=== PATIENT | female | born 2000 | race Caucasian/White ===

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

== ENCOUNTER 2018-03-18 04:28 | Emergency (ER) | payer BC, MEDICAID ==
--- NOTE | 2018-03-18 04:33 | ERPHSYRPT ---
- History of Present Illness Time Seen by Provider: 03/18/18 04:33 Source: patient, family Physician History: 17 y/o iddm white female with an implanted left lower quadrant abd wall insulin pump presents with mild left lower abd discomfort and mild diarrhea. pts blood glucose has been poorly controlled this past week. this am she checked for ketones in her urine and home kit said urine positive for ketones. pt denies vomiting. her diarrhea is more of intermittent loose stools. Timing/Duration: today Severity: mild Associated Symptoms: abdominal pain (mild left lower quad), No nausea, No vomiting, No shortness of breath, No heartburn, No fever Allergies/Adverse Reactions: No Known Drug Allergies Allergy (Verified 03/18/18 04:43) Home Medications: Insulin Aspart [NovoLOG Insulin] 1 unit SQ UD 07/27/16 [History] Sertraline HCl 100 mg [Zoloft 100 MG] 100 mg PO DAILY 07/27/16 [History] Hx Influenza Vaccination/Date Given: No - Review of Systems Constitutional: No Symptoms, No Fever Eyes: No Symptoms, No Discharge Ears, Nose, & Throat: No Symptoms, No Ear Pain Respiratory: No Symptoms, No Cough, No Dyspnea, No Stridor, No Wheezing Cardiac: No Symptoms, No Chest Pain, No Palpitations, No Syncope Abdominal/Gastrointestinal: Abdominal Pain (mild), Diarrhea (mild loose stools) , No Nausea, No Vomiting Genitourinary Symptoms: No Symptoms, No Dysuria, No Hematuria Musculoskeletal: No Symptoms, No Back Pain, No Neck Pain Skin: No Symptoms Neurological: No Symptoms Psychological: No Symptoms Endocrine: No Symptoms Hematologic/Lymphatic: No Symptoms Immunological/Allergic: No Symptoms All Other Systems: Reviewed and Negative - Past Medical History Pertinent Past Medical History: Yes Neurological History: No Pertinent History ENT History: No Pertinent History Cardiac History: No Pertinent History Respiratory History: No Pertinent History Endocrine Medical History: Diabetes Type I Musculoskeletal History: No Pertinent History GI Medical History: No Pertinent History History: No Pertinent History Psycho-Social History: Depression Female Reproductive Disorders: No Pertinent History Other Medical History: insulin pump - Past Surgical History Past Surgical History: Yes Neuro Surgical History: No Pertinent History Cardiac: No Pertinent History Respiratory: No Pertinent History Gastrointestinal: No Pertinent History Genitourinary: No Pertinent History Musculoskeletal: No Pertinent History Female Surgical History: No Pertinent History - Social History Smoking Status: Never smoker Exposure to second hand smoke: No Drug Use: none - Nursing Vital Signs Nursing Vital Signs: Initial Vital Signs Temperature 98.9 F 03/18/18 04:33 Pulse Rate 83 03/18/18 04:33 Blood Pressure 129/77 03/18/18 04:33 O2 Sat by Pulse Oximetry 98 03/18/18 04:33 Pain Scale Pain Intensity 7 - Physical Exam General Appearance: no apparent distress, alert, anxiety Eye Exam: PERRL/EOMI Ears, Nose, Throat Exam: normal ENT inspection, moist mucous membranes Neck Exam: normal inspection, non-tender, supple, full range of motion Respiratory Exam: normal breath sounds, lungs clear, airway intact, No chest tenderness, No respiratory distress, No accessory muscle use, No rhonchi, No wheezing, No stridor Gastrointestinal/Abdomen Exam: soft, normal bowel sounds, tenderness (mild left lower quadrant tenderness to palpation not in area of pump; pump site without infection), No guarding, No rebound Pelvic Exam: not done Rectal Exam: not done Back Exam: normal inspection, normal range of motion, No CVA tenderness, No vertebral tenderness Extremity Exam: normal inspection, normal range of motion, pelvis stable Neurologic Exam: alert, oriented x 3, cooperative, sulfonator operator II-XII nml as tested Skin Exam: normal color, warm, dry Lymphatic Exam: No adenopathy SpO2 Interpretation: normal - Course Nursing assessment & vital signs reviewed: Yes Ordered Tests: Active Orders 24 hr Category Date Time Status Accucheck STAT Care 03/18/18 04:43 Active UA W/ MICROSCOPIC Stat Lab 03/18/18 04:51 Completed Lab/Rad Data: Laboratory Results 03/18/18 Range/Units 04:51 Ur Collection Type VOID Urine Color YELLOW (YELLOW) Urine Appearance CLEAR (CLEAR) Urine pH 6.0 (5-6) Ur Specific [place] 1.010 (1.005-1.025) Urine Protein NEGATIVE (Negative) Urine Ketones NEGATIVE (NEGATIVE) Urine Blood NEGATIVE (0-5) Jigar/ul Urine Nitrite NEGATIVE (NEGATIVE) Urine Bilirubin NEGATIVE (NEGATIVE) Urine Urobilinogen NORMAL (0-1) mg/dL Ur Leukocyte Esterase NEGATIVE (NEGATIVE) Urine Microscopic WBC 0-2 (0-5) /HPF Ur Epithelial Cells MANY (FEW) /HPF Urine Culture Reflexed NO (NO) Urine Glucose 1000 (NEGATIVE) mg/dL Specimen Received 03/18 2946 - Progress Counseled pt/family regarding: lab results, diagnosis, need for follow-up - Departure Time of Disposition: 05:07 Departure Disposition: Home Clinical Impression: Hyperglycemia Condition: Stable Critical Care Time: No Referrals: CHEKO GROVE MD [Primary Care Provider] - Additional Instructions: drink plenty of fluids. monitor and treat your high blood glucose as directed. return to ER if symptoms worsen. follow up with primary doctor on tuesday for persistent symptoms or blood sugar control issues.
[2018-03-18 04:43] VITALS: PULSE 83
[2018-03-18 05:00] LABS: Appearance CLEAR (CLEAR); Bilirubin NEGATIVE (NEGATIVE); Blood NEGATIVE Ery/ul (0-5); Glucose 1000 mg/dL (NEGATIVE); Ketones NEGATIVE (NEGATIVE); Leukocyte Esterase NEGATIVE (NEGATIVE); Nitrite NEGATIVE (NEGATIVE); Protein,Urine Dip NEGATIVE (Negative); Urobilinogen NORMAL mg/dL (0-1)
[2018-03-18 05:07] LABS: Epithelial Cells MANY /HPF (FEW); WBC 0-2 /HPF (0-5)
[2018-03-18 05:28] VITALS: BP 121/78; O2SAT 97
== END 2018-03-18 05:28 | disposition home or self-care (01) ==
LOC: ED 04:28
DX: E10.65 Type 1 diabetes mellitus with hyperglycemia (principal); Z79.4 Long term (current) use of insulin; R10.32 Left lower quadrant pain; R19.7 Diarrhea, unspecified
CPT/HCPCS: 81000; 82962; 99283

== ENCOUNTER 2018-10-14 10:55 | Emergency (ER) | payer BC, OTHER ==
[2018-10-14 11:21] VITALS: O2SAT 97
[2018-10-14] MEDS ORDERED: Sodium Chloride 0.9% 1000 ML 1,000 ML IV STA ×2 (11:32→12:34)
[2018-10-14] MEDS ORDERED: Zofran 4 MG/2 ML VIAL IV ONE (11:32)
--- NOTE | 2018-10-14 11:32 | ERPHSYRPT ---
- History of Present Illness Time Seen by Provider: 10/14/18 11:10 Source: patient Exam Limitations: no limitations Patient Subjective Stated Complaint: states is type 1 diabetic with insulin pump and has had a high blood sugar today with high ketones. Triage Nursing Assessment: ambulated to room per self. skin w/d, color normal, resp easy. denies any pain. denies any recent illnesses. Physician History: 18 y/o white female with type 1 diabetes presents with high reading on her blood sugar this am. pt has an insulin pump but she thinks it is not functioning. this has occurred over a day or so. she made adjustments in her insulin this morning and now her blood glucose is in the 300's but ketones are elevated. Timing/Duration: today Severity: moderate Associated Symptoms: nausea, weakness, No vomiting, No abdominal pain Allergies/Adverse Reactions: No Known Drug Allergies Allergy (Verified 10/14/18 11:10) Home Medications: Insulin Aspart [NovoLOG Insulin] 1 unit SQ UD 07/27/16 [History] Venlafaxine HCl [Venlafaxine HCl ER] 150 mg PO DAILY 10/14/18 [History] Hx Tetanus, Diphtheria Vaccination/Date Given: No Hx Influenza Vaccination/Date Given: No Hx Pneumococcal Vaccination/Date Given: No - Review of Systems Constitutional: Weakness Eyes: No Symptoms Ears, Nose, & Throat: No Symptoms Respiratory: No Symptoms Cardiac: No Symptoms Abdominal/Gastrointestinal: Nausea, No Abdominal Pain, No Vomiting, No Diarrhea Genitourinary Symptoms: No Symptoms Musculoskeletal: No Symptoms Skin: No Symptoms Neurological: No Symptoms Psychological: No Symptoms Endocrine: No Symptoms Hematologic/Lymphatic: No Symptoms Immunological/Allergic: No Symptoms All Other Systems: Reviewed and Negative - Past Medical History Pertinent Past Medical History: Yes Neurological History: No Pertinent History ENT History: No Pertinent History Cardiac History: No Pertinent History Respiratory History: No Pertinent History Endocrine Medical History: Diabetes Type I Musculoskeletal History: No Pertinent History GI Medical History: No Pertinent History History: No Pertinent History Psycho-Social History: Depression Female Reproductive Disorders: No Pertinent History Other Medical History: insulin pump - Past Surgical History Past Surgical History: Yes Neuro Surgical History: No Pertinent History Cardiac: No Pertinent History Respiratory: No Pertinent History Gastrointestinal: No Pertinent History Genitourinary: No Pertinent History Musculoskeletal: No Pertinent History Female Surgical History: No Pertinent History - Social History Smoking Status: Current every day smoker How long have you smoked: 2 Exposure to second hand smoke: Yes Drug Use: none Patient Lives Alone: No - Female History Hx Last Menstrual Period: 10/02/18 Hx Now: (unsure) - Nursing Vital Signs Nursing Vital Signs: Initial Vital Signs Temperature 97.7 F 10/14/18 11:02 Pulse Rate 110 H 10/14/18 11:02 Respiratory Rate 16 10/14/18 11:02 Blood Pressure 129/85 10/14/18 11:02 O2 Sat by Pulse Oximetry 97 10/14/18 11:02 Pain Scale Pain Intensity 0 - Physical Exam General Appearance: mild distress, alert, anxiety Eye Exam: PERRL/EOMI Ears, Nose, Throat Exam: normal ENT inspection, moist mucous membranes Neck Exam: normal inspection, non-tender, supple, full range of motion Respiratory Exam: normal breath sounds, lungs clear, airway intact, No chest tenderness, No respiratory distress, No accessory muscle use, No rhonchi, No wheezing, No stridor Cardiovascular Exam: tachycardia Gastrointestinal/Abdomen Exam: soft, normal bowel sounds, No tenderness, No guarding, No rebound Pelvic Exam: not done Rectal Exam: not done Back Exam: normal inspection, normal range of motion, No CVA tenderness, No vertebral tenderness Extremity Exam: normal inspection, normal range of motion, pelvis stable Neurologic Exam: alert, oriented x 3, cooperative, product marketing analyst II-XII nml as tested Skin Exam: normal color, warm, dry Lymphatic Exam: No adenopathy SpO2 Interpretation: normal SpO2: 97 O2 Delivery: Room Air Ordered Tests: Active Orders 24 hr Category Date Time Status Clean Catch Urine Specimen STAT Care 10/14/18 11:32 Active IV Insertion STAT Care 10/14/18 11:32 Active AMYLASE Stat Lab 10/14/18 11:01 Completed CBC W DIFF Stat Lab 10/14/18 11:01 Completed CMP Stat Lab 10/14/18 11:01 Completed HCG,QUALITATIVE URINE Stat Lab 10/14/18 11:01 Completed LIPASE Stat Lab 10/14/18 11:01 Completed UA W/RFX UR CULTURE Stat Lab 10/14/18 11:01 Completed Medication Summary Discontinued Medications Generic Name Dose Route Start Last Admin Trade Name Freq PRN Reason Stop Dose Admin Sodium Chloride 1,000 mls @ 999 mls/hr 10/14/18 11:32 10/14/18 12:44 Sodium Chloride 0.9% 1000 Ml IV 10/14/18 12:32 Infused .Q1H1M STA Infusion Sodium Chloride Confirm 10/14/18 11:36 Sodium Chloride 0.9% 1000 Ml Administered 10/14/18 11:37 Dose 1,000 mls @ ud .ROUTE .STK-MED ONE Sodium Chloride 1,000 mls @ 999 mls/hr 10/14/18 12:34 10/14/18 12:39 Sodium Chloride 0.9% 1000 Ml IV 10/14/18 13:34 999 mls/hr .Q1H1M STA Administration Sodium Chloride Confirm 10/14/18 12:38 Sodium Chloride 0.9% 1000 Ml Administered 10/14/18 12:39 Dose 1,000 mls @ ud .ROUTE .STK-MED ONE Ondansetron HCl 4 mg 10/14/18 11:32 10/14/18 11:39 Zofran 4 Mg/2 Ml Vial IV 10/14/18 11:33 4 mg STAT ONE Administration Ondansetron HCl Confirm 10/14/18 11:36 Zofran 4 Mg/2 Ml Vial Administered 10/14/18 11:37 Dose 4 mg .ROUTE .STK-MED ONE Potassium Bicarbonate 25 meq 10/14/18 12:58 10/14/18 13:10 K-Lyte 25 Meq PO 10/14/18 12:59 25 meq STAT ONE Administration Potassium Bicarbonate Confirm 10/14/18 13:08 K-Lyte 25 Meq Administered 10/14/18 13:09 Dose 25 meq .ROUTE .STK-MED ONE Lab/Rad Data: Laboratory Result Diagrams 10/14/18 11:01 10/14/18 11:01 Laboratory Results 10/14/18 10/14/18 10/14/18 Range/Units 11:01 11:01 11:01 WBC 6.0 (4.0-10.5) K/mm3 RBC 4.95 (4.1-5.4) M/mm3 Hgb 14.8 (12.0-16.0) gm/dl Hct 44.5 (35-47) % MCV 89.9 (78-100) fl MCH 29.9 (26-32) pg MCHC 33.3 (32-36) g/dl RDW 13.3 (11.5-14.0) % Plt Count 267 (150-450) K/mm3 MPV 11.5 H (6-9.5) fl Gran % 63.8 (36.0-66.0) % Eos # (Auto) 0.13 (0-0.5) Absolute Lymphs (auto) 1.58 (1.0-4.6) Absolute Monos (auto) 0.45 (0.0-1.3) Lymphocytes % 26.2 (24.0-44.0) % Monocytes % 7.5 (0.0-12.0) % Eosinophils % 2.2 (0.00-5.0) % Basophils % 0.3 (0.0-0.4) % Absolute Granulocytes 3.85 (1.4-6.9) Basophils # 0.02 (0-0.4) Sodium 138 (137-145) mmol/L Potassium 3.2 L (3.5-5.1) mmol/L Chloride 98 (98-107) mmol/L Carbon Dioxide 24 (22-30) mmol/L Anion Gap 19.5 H (5-15) MEQ/L BUN 8 (7-17) mg/dL Creatinine 0.65 (0.52-1.04) mg/dL Estimated GFR > 60.0 ML/MIN Glucose 368 H (74-106) mg/dL Calcium 9.7 (8.4-10.2) mg/dL Total Bilirubin 0.80 (0.2-1.3) mg/dL AST 24 (14-36) U/L ALT 18 (0-35) U/L Alkaline Phosphatase 115 (38-126) U/L Serum Total Protein 7.3 (6.3-8.2) g/dL Albumin 4.6 (3.5-5.0) g/dL Amylase 44 (30-110) U/L Lipase 21 L (23-300) U/L Urine Color (YELLOW) Urine Appearance (CLEAR) Urine pH (5-6) Ur Specific [place] (1.005-1.025) Urine Protein (Negative) Urine Ketones (NEGATIVE) Urine Blood (0-5) Jigar/ul Urine Nitrite (NEGATIVE) Urine Bilirubin (NEGATIVE) Urine Urobilinogen (0-1) mg/dL Ur Leukocyte Esterase (NEGATIVE) Urine WBC (Auto) (0-5) /HPF U Epithel Cells (Auto) (FEW) /HPF Urine Bacteria (Auto) (NEGATIVE) /HPF Urine Culture Reflexed (NO) Urine Glucose (NEGATIVE) mg/dL Urine HCG, Qual NEGATIVE (Negative) 10/14/18 Range/Units 11:01 WBC (4.0-10.5) K/mm3 RBC (4.1-5.4) M/mm3 Hgb (12.0-16.0) gm/dl Hct (35-47) % MCV (78-100) fl MCH (26-32) pg MCHC (32-36) g/dl RDW (11.5-14.0) % Plt Count (150-450) K/mm3 MPV (6-9.5) fl Gran % (36.0-66.0) % Eos # (Auto) (0-0.5) Absolute Lymphs (auto) (1.0-4.6) Absolute Monos (auto) (0.0-1.3) Lymphocytes % (24.0-44.0) % Monocytes % (0.0-12.0) % Eosinophils % (0.00-5.0) % Basophils % (0.0-0.4) % Absolute Granulocytes (1.4-6.9) Basophils # (0-0.4) Sodium (137-145) mmol/L Potassium (3.5-5.1) mmol/L Chloride (98-107) mmol/L Carbon Dioxide (22-30) mmol/L Anion Gap (5-15) MEQ/L BUN (7-17) mg/dL Creatinine (0.52-1.04) mg/dL Estimated GFR ML/MIN Glucose (74-106) mg/dL Calcium (8.4-10.2) mg/dL Total Bilirubin (0.2-1.3) mg/dL AST (14-36) U/L ALT (0-35) U/L Alkaline Phosphatase (38-126) U/L Serum Total Protein (6.3-8.2) g/dL Albumin (3.5-5.0) g/dL Amylase (30-110) U/L Lipase (23-300) U/L Urine Color STRAW (YELLOW) Urine Appearance CLEAR (CLEAR) Urine pH 6.0 (5-6) Ur Specific [place] 1.027 (1.005-1.025) Urine Protein NEGATIVE (Negative) Urine Ketones MODERATE (NEGATIVE) Urine Blood NEGATIVE (0-5) Jigar/ul Urine Nitrite NEGATIVE (NEGATIVE) Urine Bilirubin NEGATIVE (NEGATIVE) Urine Urobilinogen NEGATIVE (0-1) mg/dL Ur Leukocyte Esterase NEGATIVE (NEGATIVE) Urine WBC (Auto) NONE (0-5) /HPF U Epithel Cells (Auto) RARE (FEW) /HPF Urine Bacteria (Auto) NONE SEEN (NEGATIVE) /HPF Urine Culture Reflexed NO (NO) Urine Glucose >=500 (NEGATIVE) mg/dL Urine HCG, Qual (Negative) - Progress Progress: improved, re-examined Progress Note: 10/14/18 13:36 pt feeling much better. i discussed with pt about admission here. pt desires to go home and monitor tx at home. she will return to ED if symptoms worsen. this pt seems very capable of tx at home and is very compliant and knowledgeable about her condition. she is trustworthy pt. 10/14/18 13:38 Counseled pt/family regarding: lab results, diagnosis, need for follow-up - Departure Departure Disposition: Home Clinical Impression: Early diabetic ketoacidosis in type 1 diabetes mellitus Condition: Stable Critical Care Time: No Referrals: CHEKO GROVE MD [Primary Care Provider] - Additional Instructions: drink plenty of fluids. monitor and treat your blood glucose closely. return to ED if symptoms worsen.
[2018-10-14] MEDS ORDERED: Zofran 4 MG/2 ML VIAL ONE (11:36)
[2018-10-14] MEDS ORDERED: Sodium Chloride 0.9% 1000 ML 1,000 ML ONE ×2 (11:36→12:38)
[2018-10-14 11:54] LABS: Appearance CLEAR (CLEAR); Bilirubin NEGATIVE (NEGATIVE); Blood NEGATIVE Ery/ul (0-5); Epithelial Cells RARE /HPF (FEW); Glucose >=500 mg/dL (NEGATIVE); Ketones MODERATE (NEGATIVE); Leukocyte Esterase NEGATIVE (NEGATIVE); Nitrite NEGATIVE (NEGATIVE); Protein,Urine Dip NEGATIVE (Negative); Specific Gravity 1.027 (1.005-1.025); Urobilinogen NEGATIVE mg/dL (0-1)
[2018-10-14 11:58] LABS: BASOPHIL % 0.3 % (0.0-0.4); Basophil (Absolute #) 0.02 (0-0.4); Eosinophil % 2.2 % (0.00-5.0); Eosinophil (Absolute #) 0.13 (0-0.5); Granulocyte Absolute (ANC) 3.85 (1.4-6.9); Granulocytes % 63.8 % (36.0-66.0); Hematocrit 44.5 % (35-47); Hemoglobin 14.8 gm/dl (12.0-16.0); Lymphocyte (Absolute #) 1.58 (1.0-4.6); Lymphocytes % 26.2 % (24.0-44.0); Mean Cell Volume 89.9 fl (78-100); Mean Corpuscular Hemoglobin 29.9 pg (26-32); Mean Corpuscular Hgb Concent. 33.3 g/dl (32-36); Mean Platelet Volume 11.5 fl (6-9.5); Monocyte (Absolute #) 0.45 (0.0-1.3); Monocytes % 7.5 % (0.0-12.0); Platelet Count 267 K/mm3 (150-450); Red Blood Count 4.95 M/mm3 (4.1-5.4); Red Cell Distribution Width 13.3 % (11.5-14.0)
[2018-10-14 12:08] LABS: Bacteria NONE SEEN /HPF (NEGATIVE)
[2018-10-14 12:34] LABS: ALBUMIN 4.6 g/dL (3.5-5.0); ALKALINE PHOSPHATASE 115 U/L (38-126); AMYLASE 44 U/L (30-110); ANION GAP 19.5 MEQ/L (5-15); BLOOD UREA NITROGEN 8 mg/dL (7-17); CHLORIDE 98 mmol/L (98-107); Calcium 9.7 mg/dL (8.4-10.2); Carbon Dioxide 24 mmol/L (22-30); Creatinine 1 0.65 mg/dL (0.52-1.04); Glucose 368 mg/dL (74-106); LIPASE 21 U/L (23-300); Potassium 3.2 mmol/L (3.5-5.1); SGOT/AST 24 U/L (14-36); SGPT/ALT 18 U/L (0-35); SODIUM 138 mmol/L (137-145); Total Protein 7.3 g/dL (6.3-8.2)
[2018-10-14] MEDS ORDERED: K-LYTE 25 MEQ PO ONE (12:58)
[2018-10-14] MEDS ORDERED: K-LYTE 25 MEQ ONE (13:08)
[2018-10-14] MEDS ORDERED: NovoLIN R IV ONE (13:41)
[2018-10-14 14:19] VITALS: BP 119/74; PULSE 82
== END 2018-10-14 14:43 | disposition home or self-care (01) ==
LOC: ED 10:55
DX: E10.10 Type 1 diabetes mellitus with ketoacidosis without coma (principal)
CPT/HCPCS: 36000; 36415; 80053; 81001; 82150; 83690; 84703; 85025; 96360; 96361; 96374; 99284; J2405; A9270-GY

== ENCOUNTER 2020-06-30 14:40 | Observation (INO) | payer OTHER ==
[2020-06-30 15:23] LABS: Appearance CLEAR (CLEAR); Bilirubin NEGATIVE (NEGATIVE); Blood NEGATIVE Ery/ul (0-5); Glucose >=500 mg/dL (NEGATIVE); Ketones NEGATIVE (NEGATIVE); Leukocyte Esterase NEGATIVE (NEGATIVE); Mucus SLIGHT /HPF (NEGATIVE); Nitrite NEGATIVE (NEGATIVE); Protein,Urine Dip NEGATIVE (Negative); Specific Gravity 1.015 (1.005-1.025); Urobilinogen NEGATIVE mg/dL (0-1)
[2020-06-30 15:29] VITALS: BP 123/82; PULSE 86
[2020-06-30 15:37] LABS: Amphetamine,Urine NEGATIVE (NEGATIVE); Barbiturate,Urine NEGATIVE (NEGATIVE); Benzodiazepine,Urine NEGATIVE (NEGATIVE); Cocaine,Urine NEGATIVE (NEGATIVE); Methadone,Urine NEGATIVE (NEGATIVE); Opiate,Urine NEGATIVE (NEGATIVE); PCP,Urine NEGATIVE (NEGATIVE); THC,Urine NEGATIVE (NEGATIVE)
== END 2020-06-30 16:35 | disposition home or self-care (01) ==
LOC: OB 14:40
PROVIDERS: ADMIT Obstetrics & Gynecology; ATTEND Obstetrics & Gynecology
DX: O47.03 False labor before 37 completed weeks of gestation, third trimester (principal); Z3A.36 36 weeks gestation of pregnancy; O24.012 Pre-existing type 1 diabetes mellitus, in pregnancy, second trimester; E10.9 Type 1 diabetes mellitus without complications; Z79.4 Long term (current) use of insulin
CPT/HCPCS: 59025; 80307; 81001; 84112; G0378